=== PATIENT | male | born 1945 | race Caucasian/White ===

== ENCOUNTER 2017-10-28 07:18 | Observation (INO) | payer MEDICARE, BC ==
[2017-10-28] MEDS: Lactated Ringers 1,000 ML IV SCH ×2 (07:33→16:05)
[2017-10-28] MEDS ORDERED: Pre-Attached Lta Kit TP ONE (07:36)
--- NOTE | 2017-10-28 08:21 | HP ---
DATE OF SURGERY: 10/28/2017 ADMISSION DIAGNOSIS: ANTICIPATED PROCEDURE: Flexible bronchoscopy. HISTORY OF PRESENT ILLNESS: The patient has right side pleural effusion. He had recent pneumonia. He presents for bronchoscopic examination. PAST MEDICAL HISTORY: Diabetes mellitus type 2. ALLERGIES: NONE. MEDICATIONS: Multiple. PAST SURGICAL HISTORY: None recent. SOCIAL HISTORY: Negative. FAMILY HISTORY: Negative. REVIEW OF SYSTEMS: Diabetes. PHYSICAL EXAMINATION: VITAL SIGNS: Normal. CHEST: Clear. COR: Regular. IMPRESSION: Previous right pleural effusion and pneumonia. PLAN: Flexible bronchoscopic examination.
--- NOTE | 2017-10-28 09:51 | XRAY ---
Indication: Low oxygenation. Bronchial spasm. Comparison: None Portable chest is underinflated, accentuating the cardiopulmonary structures and crowding the lung bases. Minimal bibasilar infiltrates versus atelectasis. No consolidation or large effusion. Heart is not enlarged. Bony thorax intact with mild osteopenia. Impression: Underinflated lungs with minimal bibasilar infiltrates/atelectasis. Correlate clinically.
[2017-10-28] MEDS ORDERED: Racepinephrine INH Solution 2.25% IH ONE (10:10)
[2017-10-28] MEDS ORDERED: MILK OF MAGNESIA 30 ML PO PRN (10:47)
[2017-10-28] MEDS ORDERED: TYLENOL 325 MG PO PRN (10:47)
[2017-10-28] MEDS ORDERED: Dulcolax 10 MG SUPP RC PRN (10:47)
[2017-10-28] MEDS ORDERED: NON-FORMULARY ITEM (Insulin Lispro 5 UNIT) SQ SCH (11:30)
[2017-10-28 11:56] LABS: ANION GAP 11.5 MEQ/L (5-15); BLOOD UREA NITROGEN 14 mg/dL (9-20); CHLORIDE 103 mmol/L (98-107); Calcium 9.3 mg/dL (8.4-10.2); Carbon Dioxide 30 mmol/L (22-30); Glucose 107 mg/dL (74-106); Potassium 4.6 mmol/L (3.5-5.1); SODIUM 139 mmol/L (137-145)
--- NOTE | 2017-10-28 13:36 | XRAY ---
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 Multiple contiguous axial images obtained through the head prior to and following 100 cc Isovue 370 contrast. Comparison: None. Age-appropriate global atrophy, minimal periventricular degenerative micro-ischemia, and small focus of remote infarct in the anterior left parietal lobe. No acute intracranial hemorrhage, abnormal extra-axial fluid collection, or mass effect. Fourth ventricle is midline without hydrocephalus. Postcontrast images negative for abnormal enhancing intra-or extra-axial mass. Bony calvarium intact. Small fluid leveling in the left maxillary sinus and partial opacification of both mastoid air cells. Impression: 1. Normal aging brain including atrophy and degenerative micro-ischemia. Small left parietal remote infarct. 2. No acute intracranial abnormalities. 3. Negative contrast exam. 4. Left maxillary sinus fluid leveling and partial opacification of both mastoid air cells presumed inflammatory. CT DI 69.52
--- NOTE | 2017-10-28 14:00 | XRAY ---
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 Multiple contiguous axial images obtained through the neck using 100 cc Isovue 370 contrast. Sagittal and coronal reformatted images obtained. Comparison: None Just superior to the true vocal cords is a posterior wall noncalcified soft tissue mass. It measures at least 1.6 cm in AP thickness and narrows the airway. It measures at least 2.5 cm in transverse diameter. Both common carotid arteries course medially than normal slightly effacing the oropharynx, right greater than left. Remaining supra and infraglottic airway widely patent. Normal-appearing epiglottis. A few subcentimeter cervical lymph nodes bilaterally. No pathologic cervical or supraclavicular lymphadenopathy. Mild calcifications at the origin of the internal carotid arteries, left greater than right. Jugular veins unremarkable. Thyroid gland enhances homogeneously. Intact with mild C5-C7 endplate spurring. Lung apices demonstrates minimal subpleural cystic changes. CT head reported separately. Impression: 1. Soft tissue mass just superior to the true vocal cords as detailed. Direct laryngoscopy recommended. 2. A few benign-appearing cervical lymph nodes. No pathologic lymphadenopathy. 3. Mild bilateral internal carotid artery calcifications. CT DI 14.83
[2017-10-28] MEDS: NORCO 7.5/325 MG TAB PO SCH ×2 (14:01→22:45)
[2017-10-28] MEDS: NovoLOG Insulin SQ SCH ×2 (14:01→17:12)
[2017-10-28 15:18] LABS: Hematocrit 42.2 % (42-50); Mean Cell Volume 92.1 fl (78-100); Mean Corpuscular Hemoglobin 28.4 pg (26-32); Mean Corpuscular Hgb Concent. 30.8 g/dl (32-36); Mean Platelet Volume 10.9 fl (6-9.5); Platelet Count 225 K/mm3 (150-450); Red Blood Count 4.58 M/mm3 (4.1-5.6); Red Cell Distribution Width 15.7 % (11.5-14.0); White Blood Count 8.5 K/mm3 (4.0-10.5)
[2017-10-28] MEDS ORDERED: ZOCOR 20MG PO SCH (22:00)
[2017-10-28] MEDS ORDERED: INSULIN GLARGINE HUM REC ANLOG 25 UNIT SQ SCH (22:00)
[2017-10-28] MEDS ORDERED: LIPITOR 40MG PO SCH (22:00)
[2017-10-28] MEDS ORDERED: NON-FORMULARY ITEM (Gabapentin [Neurontin] 600 MG) PO SCH (22:00)
[2017-10-28] MEDS ORDERED: SENOKOT 8.6 MG PO SCH (22:00)
[2017-10-28] MEDS: Colace 100 MG PO SCH (22:44)
[2017-10-28] MEDS: NEURONTIN 300 MG PO SCH (22:45)
[2017-10-28] MEDS: Imdur 30 MG PO SCH (22:45)
[2017-10-28] MEDS: Lantus Insulin SQ SCH (22:50)
[2017-10-29] MEDS: Xopenex 1.25 MG/0.5 ML UD NEBULE IH SCH ×3 (04:47→10:58)
--- NOTE | 2017-10-29 08:12 | OP ---
SURGERY DATE/TIME: 10/28/2017 0900 PREOPERATIVE DIAGNOSIS: Right pulmonary process requiring bronchoscopy. POSTOPERATIVE DIAGNOSIS: A very marginal liquid is obtained but there was strong suggestion of a subglottic tumor preventing anesthetic and aborting the case. PROCEDURE: Initiation of anesthetic only. SURGEON: Daquan Reyes M.D. ANESTHESIA: Talon Cifuentes CRNA INDICATION: The patient is 72 years old. He had a major right sided pulmonary process with pneumonia. The pneumonia is cleared. There is still some residual cough, still some concern about the etiology of this pneumonia. He presents for a bronchoscopy. DESCRIPTION OF PROCEDURE: He is taken to surgery. Airway was being provided. The endotracheal tube would not go through. A laryngeal mask was placed but not sealed very well. An oral airway with bagging with excellent position was successful. The patient's O2 saturation was able to be maintained back up to 100. A second additional glimpse with the handheld glide scope. It looked like there was tumor immediately below the cord on one side. The procedure is canceled. CT scan of the head and neck was ordered. He was given a nebulizer treatment and has been placed in observation. He was given a dose of steroids also. 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
[2017-10-29] MEDS: NovoLOG Insulin SQ SCH ×2 (09:28→12:16)
[2017-10-29] MEDS: NORCO 7.5/325 MG TAB PO SCH (09:51)
[2017-10-29] MEDS: Imdur 30 MG PO SCH (09:52)
[2017-10-29] MEDS: NEURONTIN 300 MG PO SCH (09:52)
[2017-10-29] MEDS: Colace 100 MG PO SCH (09:52)
[2017-10-29] MEDS ORDERED: Lasix 40 MG PO SCH (10:00)
[2017-10-29] MEDS ORDERED: Zestril 5 MG PO SCH (10:00)
[2017-10-29] MEDS ORDERED: ceLEXa 20 MG PO SCH (10:00)
[2017-10-29] MEDS ORDERED: NON-FORMULARY ITEM (Citalopram Hydrobromide [Celexa] 10 MG) PO SCH (10:00)
[2017-10-29] MEDS ORDERED: NON-FORMULARY ITEM (Potassium Chloride [Potassium Chloride] 20 MEQ) PO SCH (10:00)
[2017-10-29] MEDS ORDERED: NON-FORMULARY ITEM (Melatonin [Melatonin] 5 MG) PO SCH (10:00)
[2017-10-29] MEDS ORDERED: Toprol Xl 50 MG PO SCH (10:00)
[2017-10-29] MEDS ORDERED: Protonix 40MG Tablet PO SCH (10:00)
[2017-10-29] MEDS ORDERED: Flomax 0.4 MG PO SCH (10:00)
[2017-10-29] MEDS ORDERED: FOLATE 1 MG PO SCH (10:00)
[2017-10-29] MEDS ORDERED: POTASSIUM CHLORIDE 20 MEQ POWDER FOR ORAL SOL PO SCH (10:00)
[2017-10-29] MEDS ORDERED: NON-FORMULARY ITEM (Omeprazole 20 Mg [Prilosec 20 Mg] 20 MG) PO SCH (10:00)
[2017-10-29] MEDS ORDERED: MEDICATION INTERVENTION MC SCH (10:00)
[2017-10-29] MEDS: Lantus Insulin SQ SCH (10:09)
[2017-10-29 11:35] VITALS: BP 119/61
[2017-10-29] MEDS ORDERED: SUBLIMAZE 100 MCG/2 ML IV ONE (12:37)
[2017-10-29] MEDS ORDERED: DIPRIVAN 200 MG/20 ML IV ONE (12:37)
[2017-10-29] MEDS ORDERED: Decadron 4 MG INJ IV ONE (12:37)
[2017-10-29] MEDS ORDERED: Quelicin Fliptop 200 MG/10 ML IV ONE (12:37)
[2017-10-29 13:48] VITALS: PULSE 90; O2SAT 96
== END 2017-10-29 12:38 ==
LOC: SDC 07:18 → EDSTATUS 07:19 → ICU 10:21 → MED SURG 22:27
PROVIDERS: ADMIT Surgery; ATTEND Surgery
PROC: 0BJ08ZZ Inspection of Tracheobronchial Tree, Via Natural or Artificial Opening Endoscopic (ICD-10-PCS; principal; 2017-10-28)
DX: J90 Pleural effusion, not elsewhere classified (principal); J18.9 Pneumonia, unspecified organism; Z79.899 Other long term (current) drug therapy
CPT/HCPCS: 31622; 36415; 70470; 70491; 71045; 80048; 82962; 84134; 85027; 93268; 94150; 94640; 94760; G0378; 99100; J0330; J1100; J2704; J3010; A9270-GY